=== PATIENT | male | born 1970 | race Two or more races ===

== ENCOUNTER 2019-02-25 22:49 | Inpatient (IN) | payer SELFPAY ==
[~2019-02-25] VITALS: Ht 177.8 cm; Wt 98.1 kg
[2019-02-25] MEDS ORDERED: fentaNYL PF VIAL 100 MCG/2 ML VIAL IV PRN (23:15)
[2019-02-25] MEDS ORDERED: IBUPROFEN 200 MG TABLET. PO ONE (23:30)
[2019-02-25] MEDS ORDERED: ACETAMINOPHEN 500 MG TABLET PO ONE (23:30)
[2019-02-25] MEDS ORDERED: PIPERACILLIN/TAZOBACTAM 4.5 GM in IV NORMAL SALINE 100ML 100 ML IV ONE (23:30)
[2019-02-25] MEDS: IV NORMAL SALINE 1000ML BAG 1,000 ML IV SCH (23:38)
[2019-02-25 23:45] LABS: BASO % 0 % (0-3); EOS % 1 % (0-3); HEMATOCRIT 37.2 % (39.0-53.0); HEMOGLOBIN 12.9 g/dL (13.0-17.5); LYMPH # 0.3 x10^3/uL (1.0-4.8); LYMPH % 6 % (24-48); MEAN CORPUSCULAR HEMOGLOBIN 31 pg (25-35); MEAN CORPUSCULAR HGB CONC 35 g/dL (31-37); MEAN CORPUSCULAR VOLUME 88 fL (79-100); MONO # 0.5 x10^3/uL (0.0-1.1); MONO % 9 % (0-9); NEUT # 4.7 x10^3/uL (1.8-7.7); NEUT % 84 % (31-73); PLATELET COUNT 113 x10^3/uL (140-400); RED BLOOD COUNT 4.22 x10^6/uL (4.30-5.70); RED CELL DISTRIBUTION WIDTH 13.9 % (11.5-14.5); WHITE BLOOD COUNT 5.5 x10^3/uL (4.0-11.0)
[2019-02-26 00:01] LABS: CREATININE 1.2 mg/dL (0.7-1.3); GFR 64.6; POTASSIUM 3.1 mmol/L (3.5-5.1)
[2019-02-26 00:02] LABS: INFLUENZA A PATIENT NEGATIVE (NEGATIVE); INFLUENZA B PATIENT NEGATIVE (NEGATIVE)
[2019-02-26 00:08] LABS: ALBUMIN 2.9 g/dL (3.4-5.0); ALBUMIN/GLOBULIN RATIO 0.7 (1.0-1.7); MAGNESIUM 1.8 mg/dL (1.8-2.4); TOTAL BILIRUBIN 3.1 mg/dL (0.2-1.0); TOTAL PROTEIN 7.2 g/dL (6.4-8.2)
[2019-02-26 00:16] LABS: CREATINE KINASE 64 U/L (39-308)
--- NOTE | 2019-02-26 00:32 | RAD ---
EXAM: CHEST ONE VIEW. HISTORY: Fever, weakness. COMPARISON: None. FINDINGS: A frontal view of the chest is obtained. Interstitial opacities in the bases most likely indicate atelectasis. There is no pneumothorax or pleural effusion. The heart is not enlarged. IMPRESSION: 1. Basilar atelectasis. No confluent infiltrates. Electronically signed by: Danish Katz MD (02/26/2019 12:29 AM) [facility]
[2019-02-26 01:21] LABS: % BANDS 22 % (0-9); % BASOS 1 % (0-3); % EOS 2 % (0-5); % LYMPHS 8 % (24-48); % MONOS 5 % (0-10); % SEGS 62 % (35-66); PLT ESTIMATE DECREASED (ADEQUATE)
[2019-02-26] MEDS: IV NORMAL SALINE 1000ML BAG 1,000 ML IV SCH ×2 (01:30→01:35)
--- NOTE | 2019-02-26 01:48 | PHYS DOC ---
Adult General Chief Complaint Chief Complaint: GENERALIZED BODY ACHES HPI HPI Patient is a 48 year old Tristanian-speaking male who presents to the ED today complaining of fevers, body aches, cough, symptoms began 3 days ago. Patient states he was seen at a different facility earlier today, was given some IV medications and told to return to the hospital if symptoms worsen. He states his symptoms are worse. He is Tristanian-speaking and family is interpreting. Denies any abdominal pain. Denies any chest pain or shortness of breath. Review of Systems Review of Systems Constitutional: Reports fever, reports body aches Eyes: Denies change in visual acuity, redness, or eye pain [] HENT: Denies nasal congestion or sore throat [] Respiratory: Reports cough, denies shortness of breath [] Cardiovascular: No additional information not addressed in HPI [] GI: Denies abdominal pain, nausea, vomiting, bloody stools or diarrhea [] : Denies dysuria or hematuria [] Musculoskeletal: Denies back pain or joint pain [] Integument: Denies rash or skin lesions [] Neurologic: Denies headache, focal weakness or sensory changes [] All other systems were reviewed and found to be within normal limits, except as documented in this note. Current Medications Current Medications Current Medications Medications (Trade) Dose Ordered Sig/Bobby Start Time Stop Time Status Last Admin Dose Admin Acetaminophen (Tylenol) 650 mg PRN Q4HRS PRN 02/26/19 02:00 02/27/19 01:59 Fentanyl Citrate (Fentanyl 2ml Vial) 25 mcg PRN Q15MIN PRN 02/25/19 23:15 02/26/19 23:14 02/25/19 23:37 25 MCG Ibuprofen (Motrin) 600 mg 1X ONCE 02/25/19 23:30 02/25/19 23:31 DC 02/25/19 23:38 600 MG Morphine Sulfate (Morphine Sulfate) 4 mg PRN Q2HR PRN 02/26/19 02:00 02/27/19 01:59 Ondansetron HCl (Zofran) 4 mg PRN Q8HRS PRN 02/26/19 02:00 02/27/19 01:59 Piperacillin Sod/ Tazobactam Sod 4.5 gm/Sodium Chloride 100 ml @ 200 mls/hr 1X ONCE 02/25/19 23:30 02/25/19 23:59 DC 02/25/19 23:39 200 MLS/HR Sodium Chloride 1,000 ml @ 125 mls/hr 1X ONCE 02/26/19 02:30 02/26/19 10:29 Vancomycin HCl (Vanco Per Pharmacy) 1 each PRN DAILY PRN 02/26/19 02:00 Vancomycin HCl 2 gm/Sodium Chloride 500 ml @ 250 mls/hr 1X ONCE 02/26/19 02:30 02/26/19 04:29 Allergies Allergies Allergies Coded Allergies Type Severity Reaction Last Updated Verified No Known Drug Allergies 02/25/19 No Physical Exam Physical Exam Constitutional: Well developed, well nourished, no acute distress, non-toxic appearance. [] HENT: Normocephalic, atraumatic, bilateral external ears normal, oropharynx moist, no oral exudates, nose normal. [] Eyes: PERRLA, EOMI, conjunctiva normal, no discharge. [] Neck: Normal range of motion, no tenderness, supple, no stridor. [] Cardiovascular:Heart rate regular rhythm, no murmur [] Lungs & Thorax: Bilateral breath sounds clear to auscultation [] Abdomen: Bowel sounds normal, soft, no tenderness, no masses, no pulsatile masses. [] Skin: Warm, dry, no erythema, no rash. [] Back: No tenderness, no CVA tenderness. [] Extremities: No tenderness, no cyanosis, no clubbing, ROM intact, no edema. [] Neurologic: Alert and oriented X 3, normal motor function, normal sensory function, no focal deficits noted. [] Psychologic: Affect normal, judgement normal, mood normal. [] Current Patient Data Vital Signs Vital Signs Date Time Temp Pulse Resp B/P (MAP) Pulse Ox O2 Delivery O2 Flow Rate FiO2 02/25/19 23:37 28 96 Room Air Lab Values Laboratory Tests Test 02/25/19 23:35 White Blood Count 5.5 x10^3/uL (4.0-11.0) Red Blood Count 4.22 x10^6/uL (4.30-5.70) L Hemoglobin 12.9 g/dL (13.0-17.5) L Hematocrit 37.2 % (39.0-53.0) L Mean Corpuscular Volume 88 fL (79-100) Mean Corpuscular Hemoglobin 31 pg (25-35) Mean Corpuscular Hemoglobin Concent 35 g/dL (31-37) Red Cell Distribution Width 13.9 % (11.5-14.5) Platelet Count 113 x10^3/uL (140-400) L Neutrophils (%) (Auto) 84 % (31-73) H Lymphocytes (%) (Auto) 6 % (24-48) L Monocytes (%) (Auto) 9 % (0-9) Eosinophils (%) (Auto) 1 % (0-3) Basophils (%) (Auto) 0 % (0-3) Neutrophils # (Auto) 4.7 x10^3/uL (1.8-7.7) Lymphocytes # (Auto) 0.3 x10^3/uL (1.0-4.8) L Monocytes # (Auto) 0.5 x10^3/uL (0.0-1.1) Eosinophils # (Auto) 0.0 x10^3/uL (0.0-0.7) Basophils # (Auto) 0.0 x10^3/uL (0.0-0.2) Segmented Neutrophils % 62 % (35-66) Band Neutrophils % 22 % (0-9) H Lymphocytes % 8 % (24-48) L Monocytes % 5 % (0-10) Eosinophils % 2 % (0-5) Basophils % 1 % (0-3) Platelet Estimate Decreased (ADEQUATE) Sodium Level 138 mmol/L (136-145) Potassium Level 3.1 mmol/L (3.5-5.1) L Chloride Level 105 mmol/L (98-107) Carbon Dioxide Level 23 mmol/L (21-32) Anion Gap 10 (6-14) Blood Urea Nitrogen 12 mg/dL (8-26) Creatinine 1.2 mg/dL (0.7-1.3) Estimated GFR (Cockcroft-Gault) 64.6 BUN/Creatinine Ratio 10 (6-20) Glucose Level 182 mg/dL (70-99) H Lactic Acid Level 1.1 mmol/L (0.4-2.0) Calcium Level 9.0 mg/dL (8.5-10.1) Magnesium Level 1.8 mg/dL (1.8-2.4) Total Bilirubin 3.1 mg/dL (0.2-1.0) H Aspartate Amino Transferase (AST) 58 U/L (15-37) H Alanine Aminotransferase (ALT) 80 U/L (16-63) H Alkaline Phosphatase 120 U/L (46-116) H Creatine Kinase 64 U/L (39-308) Creatine Kinase MB (Mass) 0.9 ng/mL (0.0-3.6) Creatine Kinase MB Relative Index % (0-4) Troponin I Quantitative < 0.017 ng/mL (0.000-0.055) EQ-Cpu-Y-Type Natriuretic Peptide 501 pg/mL (0-124) H Total Protein 7.2 g/dL (6.4-8.2) Albumin 2.9 g/dL (3.4-5.0) L Albumin/Globulin Ratio 0.7 (1.0-1.7) L Procalcitonin 3.84 ng/mL (0.00-0.10) H Influenza Type A Antigen Negative (NEGATIVE) Influenza Type B Antigen Negative (NEGATIVE) Laboratory Tests 02/25/19 23:35 Laboratory Tests 02/25/19 23:35 EKG EKG [] Radiology/Procedures Radiology/Procedures []PROCEDURE: PORTABLE CHEST 1V EXAM: CHEST ONE VIEW. HISTORY: Fever, weakness. COMPARISON: None. FINDINGS: A frontal view of the chest is obtained. Interstitial opacities in the bases most likely indicate atelectasis. There is no pneumothorax or pleural effusion. The heart is not enlarged. IMPRESSION: 1. Basilar atelectasis. No confluent infiltrates. Electronically signed by: Danish Katz MD (02/26/2019 12:29 AM) [facility] DICTATED and SIGNED BY: JAYSON KATZ MD DATE: 02/26/19 0029 Course & Med Decision Making Course & Med Decision Making Pertinent Labs and Imaging studies reviewed. (See chart for details) This is a Tristanian-speaking 48-year-old male patient presenting to the ED today with fever body aches chills, symptoms began 3 days ago. Was seen earlier at a different facility and head some IV medications. Vitals on arrival to the ED temperature 101.3, heart rate 1:30, respiration 32 on room air, blood pressure 119/72, O2 sats 97%. Patient was started on sepsis protocol including IV fluids as well as Zosyn. CBC with a normal WBC but patient has a notable bandemia. CMP noted for potassium of 3.1-patient was given oral potassium replacement. Bilirubin was 3.1, AST 58, AST 80, ALT 120, right upper quadrant abdominal ultrasound is nega tive. Lactic is normal, pro-calcitonin is 3.84. Chest x-ray is negative for pneumonia. Negative influenza A and B. Negative rapid strep. Patient admits the sepsis protocol-I do not have a source for his infection. Patient was admitted in stable condition, IV fluid as well as vancomycin were ordered. Spoke with Dr. Gallagher will give report to Dr. Layla Blue Disclaimer Mirza Disclaimer This electronic medical record was generated, in whole or in part, using a voice recognition dictation system. Date and Time of Reassessment Date: Feb 26, 2019 Time: 02:00 Fluid Challenge Is the fluid challenge complet: No IBW Target Volume Used: No BMI > 30: No Vital Signs Vital Signs: Vital Signs Date Time Temp Pulse Resp B/P (MAP) Pulse Ox O2 Delivery O2 Flow Rate FiO2 02/25/19 23:37 28 96 Room Air Temperature Source: Oral Respirations Respiratory Effort: Normal Respiratory Pattern: Normal Cardiovascular Pulse Rhythm: Regular Heart: Nml rate, reg. rhythm Lung Sounds Breath Sounds: Clear Capillary Refil Capillary Refill: Rt Hand > 3 seconds Peripheral Pulse Pulse Location: Monitor Pulse Strength: Normal (2+) Pulse Assessment Method: Palpation Integumentary Skin: Warm Skin Moisture: Dry Skin Turgor: Normal Skin Color: warm Fingernail Color: WNL Departure Departure Impression: Primary Impression: Fever Additional Impressions: Sepsis Cough Hypokalemia Disposition: ADMITTED INPATIENT Condition: STABLE Referrals: NO PCP (PCP) Problem Qualifiers Primary Impression: Fever Fever type: unspecified Qualified Codes: R50.9 - Fever, unspecified Additional Impressions: Sepsis Sepsis type: sepsis due to unspecified organism Sepsis acute organ dysfunction status: unspecified Qualified Codes: A41.9 - Sepsis, unspecified organism CHERYL FRAZIER SHELL MACHINE OPERATOR Feb 26, 2019 01:48
[2019-02-26] MEDS ORDERED: ACETAMINOPHEN 325 MG TABLET. PO PRN (02:00)
--- NOTE | 2019-02-26 02:17 | RAD ---
EXAM: RIGHT UPPER QUADRANT ULTRASOUND. HISTORY: Elevated liver enzymes. COMPARISON: None. FINDINGS: Sonographic evaluation of the right upper quadrant was performed. Hyperechogenicity of the hepatic parenchyma is consistent with diffuse hepatic steatosis. The liver is mildly enlarged spanning 18.4 cm. There are no focal lesions. The gallbladder is unremarkable without evidence of stones, wall thickening or pericholecystic fluid. There is no sonographic Pinedo sign. The common duct measures 4 mm. The visualized portions of the head of the pancreas reveal no abnormality. The right kidney measures 12.5 cm. Cortical thickness and echogenicity are preserved. There is no hydronephrosis. The visualized portions of the abdominal aorta and inferior vena cava are grossly patent and normal in caliber. IMPRESSION: 1. Diffuse hepatic steatosis. Electronically signed by: Danish Katz MD (02/26/2019 2:14 AM) [facility]
[2019-02-26] MEDS ORDERED: POTASSIUM CHLORIDE 20 MEQ TABLET.ER. PO ONE (02:30)
[2019-02-26] MEDS ORDERED: VANCOMYCIN 2 GM in IV NORMAL SALINE 500ML BAG 500 ML IV ONE (02:30)
[2019-02-26] MEDS ORDERED: IV NORMAL SALINE 1000ML BAG 1,000 ML IV ONE (02:30)
[2019-02-26] MEDS ORDERED: CONTRAST GIVEN. MC PRN (02:45)
[2019-02-26] MEDS ORDERED: IOHEXOL 300 MG/ML 100ML VIAL. IV ONE (02:45)
[2019-02-26 03:00] LABS: BILIRUBIN,URINE NEGATIVE (NEG); CLARITY,URINE CLEAR; COLOR,URINE YELLOW; NITRITE,URINE NEGATIVE (NEG); PROTEIN,URINE 30 mg/dL (NEG-TRACE)
[2019-02-26 03:09] LABS: BACTERIA,URINE 0 /HPF (0-FEW)
[2019-02-26 03:10] LABS: SQUAMOUS EPITHELIAL CELL,UR OCC /LPF
--- NOTE | 2019-02-26 03:17 | RAD ---
EXAM: CT ABDOMEN/PELVIS WITH CONTRAST. HISTORY: Fever, abdominal pain. TECHNIQUE: Computed tomography of the abdomen and pelvis was performed after the intravenous administration of Isovue-370. COMPARISON: None. FINDINGS: Lung windows through the visualized portions of the bases reveal interstitial opacities in both lung bases. Bone windows reveal no suspicious lesions. There is mild urothelial thickening along both upper tracts. There is no hydronephrosis. Both kidneys enhance symmetrically. The bladder is unremarkable. The liver, gallbladder, pancreas, adrenal glands and spleen are unremarkable. There are no pathologically enlarged lymph nodes. The appendix is not inflamed. There is no small bowel obstruction. IMPRESSION: 1. Urothelial thickening along both upper tracts. Correlate for ascending urinary tract infection. No hydronephrosis. 2. Interstitial opacities in both lung bases. Correlate for mild to moderate pulmonary edema or atypical pneumonia. *One or more of the following individualized dose reduction techniques were utilized for this examination: 1. Automated exposure control. 2. Adjustment of the mA and/or kV according to patient size. 3. Use of iterative reconstruction technique. Electronically signed by: Danish Katz MD (02/26/2019 3:14 AM) [facility]
[2019-02-26 03:20] VITALS: BP 103/70
[2019-02-26] MEDS: VANCOMYCIN PER PHARMACY MC PRN ×2 (04:14→11:27)
--- NOTE | 2019-02-26 04:16 | NUR ---
Pharmacy Vancomycin Dosing Note S:Consulted to monitor and dose vancomycin started 02/26/19. O:SAKSHI SIMS is a 48 year old M with Sepsis . Height: 6 feet, 0 inches Weight: 97.600441 kg [place] Body Weight: 77.60 Adjusted Body Weight: 85.56 Dosing Weight: Actual Other Antibiotics: ZOSYN X1 IN ER LABS: Last BUN: 12 Last Creatinine: 1.2 Creatinine Clearance: 91 mL/min Last WBC: 5.5 Last Procalcitonin: 3.84 Tmax (past 24 hours): 101.3 Microbiology: I/O: Drug Levels: Last level: on at Last dose given 02/26/19 at 0230 Vancomycin Dosing: Loading Dose: 2000 mg x1 Dosing Weight: Actual Target Trough: 15-20 A: Based on: WT AND CRCL P: 1. Begin Vancomycin 1500 mg IV q12h 2. Follow up Trough level on 02/27/19 at 1430 3. Pharmacy will continue to monitor, follow and adjust therapy as needed. TARA NEGRON RPH, 02/26/19 0416 Signed: 02/26/19 at 0416 by TARA NEGRON RPH PHA
--- NOTE | 2019-02-26 05:38 | EKG ---
[facility] [address] [place] [address] Test Date: 2019-02-25 Test Time: 23:16:32 Pat Name: SAKSHI SIMS Department: Room: [facility] Gender: M Banquet Stewardess: : 1970 Requested By: CHERYL FRAZIER Order Number: [id number] Reading MD: Sudheer Norwood MD Measurements Intervals [place] Rate: 121 P: 8 ND: 150 QRS: 37 QRSD: 88 T: -48 QT: 286 QTc: 409 Interpretive Statements SINUS TACHYCARDIA NON-SPECIFIC ST/T CHANGES Electronically Signed On 03-06-2019 9:56:56 CDT by Sudheer Norwood MD
[2019-02-26 07:00] VITALS: BP 91/57
[2019-02-26] MEDS: ONDANSETRON PF 4 MG/2 ML VIAL. IV PRN ×2 (08:40→19:45)
[2019-02-26] MEDS: MORPHINE SULFATE 4 MG/ML VIAL. IV PRN ×4 (08:45→19:45)
[2019-02-26] MEDS ORDERED: FLU VAX QS 2019-20 (36MOS+)/PF 0.5 ML SYRINGE. VAX IM ONE (09:00)
--- NOTE | 2019-02-26 09:41 | PDOC ---
[employer] PROGRESS NOTE Chief Complaint Chief Complaint Fever Cough Sepsis Hypokalemia History of Present Illness History of Present Illness 02/26/19 Pt seen and examined at bedside Joined by family; does not speak Belarusian Son was able to interpret Pt was laying in bed, looked slightly uncomfortable Charts and labs reviewed Interstitial opacities found on CXR Possible ascending pyelonephritis Hepatitic steatosis on US Vitals/I&O Vitals/I&O: Vital Signs Date Time Temp Pulse Resp B/P (MAP) Pulse Ox O2 Delivery O2 Flow Rate FiO2 02/26/19 08:45 Room Air 02/26/19 07:00 99.4 78 18 91/57 (68) 95 99.4 I & O 02/25/19 02/25/19 02/26/19 15:00 23:00 07:00 Intake Total 2547 ml Balance 2547 ml Physical Exam General: Alert, Oriented X3, Cooperative, No acute distress Heart: Regular rate, Normal S1, Normal S2 Abdomen: Normal bowel sounds, Soft Extremities: No clubbing, No cyanosis Skin: No rashes, No breakdown, No significant lesion Labs Labs: Laboratory Tests Test 02/25/19 23:35 02/25/19 23:45 02/26/19 02:52 White Blood Count 5.5 x10^3/uL (4.0-11.0) Red Blood Count 4.22 x10^6/uL (4.30-5.70) Hemoglobin 12.9 g/dL (13.0-17.5) Hematocrit 37.2 % (39.0-53.0) Mean Corpuscular Volume 88 fL (79-100) Mean Corpuscular Hemoglobin 31 pg (25-35) Mean Corpuscular Hemoglobin Concent 35 g/dL (31-37) Red Cell Distribution Width 13.9 % (11.5-14.5) Platelet Count 113 x10^3/uL (140-400) Neutrophils (%) (Auto) 84 % (31-73) Lymphocytes (%) (Auto) 6 % (24-48) Monocytes (%) (Auto) 9 % (0-9) Eosinophils (%) (Auto) 1 % (0-3) Basophils (%) (Auto) 0 % (0-3) Neutrophils # (Auto) 4.7 x10^3/uL (1.8-7.7) Lymphocytes # (Auto) 0.3 x10^3/uL (1.0-4.8) Monocytes # (Auto) 0.5 x10^3/uL (0.0-1.1) Eosinophils # (Auto) 0.0 x10^3/uL (0.0-0.7) Basophils # (Auto) 0.0 x10^3/uL (0.0-0.2) Segmented Neutrophils % 62 % (35-66) Band Neutrophils % 22 % (0-9) Lymphocytes % 8 % (24-48) Monocytes % 5 % (0-10) Eosinophils % 2 % (0-5) Basophils % 1 % (0-3) Platelet Estimate Decreased (ADEQUATE) Sodium Level 138 mmol/L (136-145) Potassium Level 3.1 mmol/L (3.5-5.1) Chloride Level 105 mmol/L (98-107) Carbon Dioxide Level 23 mmol/L (21-32) Anion Gap 10 (6-14) Blood Urea Nitrogen 12 mg/dL (8-26) Creatinine 1.2 mg/dL (0.7-1.3) Estimated GFR (Cockcroft-Gault) 64.6 BUN/Creatinine Ratio 10 (6-20) Glucose Level 182 mg/dL (70-99) Lactic Acid Level 1.1 mmol/L (0.4-2.0) Calcium Level 9.0 mg/dL (8.5-10.1) Magnesium Level 1.8 mg/dL (1.8-2.4) Total Bilirubin 3.1 mg/dL (0.2-1.0) Aspartate Amino Transf (AST/SGOT) 58 U/L (15-37) Alanine Aminotransferase (ALT/SGPT) 80 U/L (16-63) Alkaline Phosphatase 120 U/L (46-116) Creatine Kinase 64 U/L (39-308) Creatine Kinase MB (Mass) 0.9 ng/mL (0.0-3.6) Creatine Kinase MB Relative Index % (0-4) Troponin I Quantitative < 0.017 ng/mL (0.000-0.055) EX-Emk-O-Type Natriuretic Peptide 501 pg/mL (0-124) Total Protein 7.2 g/dL (6.4-8.2) Albumin 2.9 g/dL (3.4-5.0) Albumin/Globulin Ratio 0.7 (1.0-1.7) Procalcitonin 3.84 ng/mL (0.00-0.10) Influenza Type A Antigen Negative (NEGATIVE) Influenza Type B Antigen Negative (NEGATIVE) Group A Streptococcus Rapid Negative (NEGATIVE) Urine Collection Type Unknown Urine Color Yellow Urine Clarity Clear Urine pH 6.0 Urine Specific [place] 1.010 Urine Protein 30 mg/dL (NEG-TRACE) Urine Glucose (UA) Negative mg/dL (NEG) Urine Ketones (Stick) Negative mg/dL (NEG) Urine Blood Moderate (NEG) Urine Nitrite Negative (NEG) Urine Bilirubin Negative (NEG) Urine Urobilinogen Dipstick 1.0 mg/dL (0.2 mg/dL) Urine Leukocyte Esterase Negative (NEG) Urine RBC 11-20 /HPF (0-2) Urine WBC 1-4 /HPF (0-4) Urine Squamous Epithelial Cells Occ /LPF Urine Bacteria 0 /HPF (0-FEW) Urine Mucus Slight /LPF Review of Systems Review of Systems: No nausea, no vomiting No chest pain, no palpitations Assessment and Plan Assessmemt and Plan Problems Medical Problems: (1) Cough Status: Acute (2) Fever Status: Acute (3) Hypokalemia Status: Acute (4) Sepsis Status: Acute Assessment Sepsis Cough Hypokalemia Pneumonia Plan IV abx Breathing treatments Rocephin 1 gm IV q24 Home meds Full code Possible discharge tomorrow Comment Review of Relevant I have reviewed the following items lacey (where applicable) has been applied. Medications: Current Medications Medications (Trade) Dose Ordered Sig/Bobby Route PRN Reason Start Time Stop Time Status Last Admin Dose Admin Sodium Chloride 1,000 ml @ 1,000 mls/hr Q1H IV 02/25/19 23:30 02/26/19 01:49 DC 02/26/19 01:30 Piperacillin Sod/ Tazobactam Sod 4.5 gm/Sodium Chloride 100 ml @ 200 mls/hr 1X ONCE IV 02/25/19 23:30 02/25/19 23:59 DC 02/25/19 23:39 Acetaminophen (Tylenol) 1,000 mg 1X ONCE PO 02/25/19 23:30 02/25/19 23:31 DC 02/25/19 23:38 Ibuprofen (Motrin) 600 mg 1X ONCE PO 02/25/19 23:30 02/25/19 23:31 DC 02/25/19 23:38 Fentanyl Citrate (Fentanyl 2ml Vial) 25 mcg PRN Q15MIN PRN IV PAIN GREATER THAN 3/10 02/25/19 23:15 02/26/19 23:14 02/25/19 23:37 Ondansetron HCl (Zofran) 4 mg PRN Q8HRS PRN IV NAUSEA/VOMITING 1st choice 02/26/19 02:00 02/27/19 01:59 02/26/19 08:40 Morphine Sulfate (Morphine Sulfate) 4 mg PRN Q2HR PRN IV SEVERE PAIN 7-10 02/26/19 02:00 02/27/19 01:59 02/26/19 08:45 Sodium Chloride 1,000 ml @ 125 mls/hr 1X ONCE IV 02/26/19 02:30 02/26/19 10:29 02/26/19 02:30 Vancomycin HCl (Vanco Per Pharmacy) 1 each PRN DAILY PRN MC SEE COMMENTS 02/26/19 02:00 02/26/19 04:14 Vancomycin HCl 2 gm/Sodium Chloride 500 ml @ 250 mls/hr 1X ONCE IV 02/26/19 02:30 02/26/19 04:29 DC 02/26/19 02:18 Potassium Chloride (Klor-Con) 40 meq 1X ONCE PO 02/26/19 02:30 02/26/19 02:31 DC 02/26/19 02:21 Iohexol (Omnipaque 300 Mg/ml) 75 ml 1X ONCE IV 02/26/19 02:45 02/26/19 02:46 DC 02/26/19 02:37 LM CORREIA III DO Feb 26, 2019 09:41
[2019-02-26 11:00] VITALS: BP 94/64
--- NOTE | 2019-02-26 11:26 | NUR ---
SS followed for discharge planning. SS reviewed pt chart. Pt is a self pay pt. HCF[facility] following for self pay status. Pt is from home with spouse and is currently on room air. SS will continue to follow for discharge planning.
[2019-02-26] MEDS ORDERED: PROCHLORPERAZINE 10 MG/2 ML VIAL. IM PRN (11:45)
--- NOTE | 2019-02-26 11:46 | HP ---
ADMIT DATE: 02/26/2019 CHIEF COMPLAINT: Shortness of breath and cough. HISTORY OF PRESENT ILLNESS: The patient is a pleasant middle-aged male, who presented with cough and shortness of breath. Chest x-ray is confirming pneumonia. He rates it as 7/10. He has associated weakness. He tried taking some hinj-bgs-cnccyis meds, but that was not working. I discussed the case with the ER physician. We are going to admit the patient and give him IV antibiotics and breathing treatments. PAST MEDICAL HISTORY: Benign. ALLERGIES: None. FAMILY HISTORY: Hypertension. SOCIAL HISTORY: Does not drink, smoke or take drugs. He does construction. MEDICATIONS: Reviewed, please refer to the MRAD. REVIEW OF SYSTEMS: GENERAL: No history of weight change, weakness or fevers. SKIN: No bruising, hair changes or rashes. EYES: No blurred, double or loss of vision. NOSE AND THROAT: No history of nosebleeds, hoarseness or sore throat. HEART: No history of palpitations, chest pain or shortness of breath on exertion. LUNGS: The patient complains of shortness of breath and cough. GASTROINTESTINAL: Denies changes in appetite, nausea, vomiting, diarrhea or constipation. GENITOURINARY: No history of frequency, urgency, hesitancy or nocturia. NEUROLOGIC: Denies history of numbness, tingling, tremor or weakness. PSYCHIATRIC: No history of panic, anxiety or depression. ENDOCRINE: No history of heat or cold intolerance, polyuria or polydipsia. EXTREMITIES: Denies muscle weakness, joint pain, pain on walking or stiffness. PHYSICAL EXAMINATION: VITALS: Within normal limits and are stable. GENERAL: No apparent distress. Alert and oriented. HEENT: Head is normocephalic, atraumatic, pupils were equally round and reactive to light and accommodation. NECK: Supple, no JVD, no thyromegaly was noted. LUNGS: Clear to auscultation in all lung hart without rhonchi or wheezing. HEART: RRR, S1, S2 present. Peripheral pulses intact, no obvious murmurs were noted. ABDOMEN: Soft, nontender. Positive bowel sounds no organomegaly, normal bowel sounds. EXTREMITIES: Without any cyanosis, clubbing, or edema. Pedal pulses intact, Homans sign is negative. NEUROLOGIC: Normal speech, normal tone. A and O x 3, moves all extremities, no obvious focal deficits. PSYCHIATRIC: Normal affect, normal mood. Stable. SKIN: No ulcerations or rashes, good skin turgor, no jaundice. VASCULAR: Good capillary refill, neurovascular bundle appears to be intact. LABORATORY DATA: Urinalysis showed negative leukocyte esterase and 1 white cell. White count was 5, hemoglobin 12.9 and platelets 113. Electrolytes are normal other than potassium of 3.1. Procalcitonin 3.84. Influenza testing was negative. DIAGNOSTIC DATA: CT of the abdomen shows some thickening of both upper urinary tracts. There are also interstitial opacities of both lung bases. ASSESSMENT AND PLAN: Clinical pneumonia and abnormal CAT scan showing some possible infection of the upper urinary tracts. We are going to start IV antibiotics. Consult Pulmonary, consult Urology. IV fluids, p.r.n. Zofran, home meds and DVT prophylaxis. LM CORREIA DO DR: REAGAN/pema JOB#: [id number] / [id number]
--- NOTE | 2019-02-26 12:01 | CONS ---
DATE OF CONSULTATION: PULMONARY CONSULTATION ATTENDING PHYSICIAN: Gracie Garza DO REASON FOR CONSULTATION: Abnormal CT abdomen. HISTORY OF PRESENT ILLNESS: The patient is a 48-year-old male who came into the hospital with complaint of abdominal pain. The patient's abdominal pain is mid epigastric and radiating to the lower quadrants. He had a mild cough last night, but it is resolved now. No purulent sputum production. The patient has been having low-grade fever. He underwent a CT of the abdomen and pelvis, which was reviewed by me. The lower section of the lung shows likely atelectasis. He has also had urothelial thickening along both upper tracts. He does not smoke cigarettes. He does not have any shortness of breath. Currently, he is on antibiotic, Rocephin and vancomycin. Neurology has been consulted. PAST MEDICAL HISTORY: Essentially unremarkable. PAST SURGICAL HISTORY: None. ALLERGIES: None. MEDICATIONS: Reviewed as listed in the MRAD. REVIEW OF SYSTEMS: As discussed in my history of present illness. SOCIAL HISTORY: Nonsmoker. PHYSICAL EXAMINATION: VITAL SIGNS: Blood pressure stable, pulse ox 98% on room air. T-max of 99.5. HEENT: Sclerae nonicteric. NECK: Supple. LUNGS: Clear. CARDIOVASCULAR: With a regular rate. ABDOMEN: Tender in the mid epigastric and lower quadrant area. EXTREMITIES: With no pitting edema. LABORATORY DATA: Reviewed. White cell count 5.5, hemoglobin 12.9, platelets are 113. BUN 12, creatinine 1.2. IMPRESSION: 1. Abnormal CT abdomen with some accentuated markings at the bases, likely secondary to basal atelectasis from the abdominal process. 2. No clinical symptoms suggesting pneumonia. 3. Increasing epigastric and lower quadrant abdominal pain with low-grade fever and abnormal CT abdomen and pelvis suggesting urothelial thickening along both upper tracts. Suspect urinary tract infection with ascending infection. Urology has been consulted. 4. No significant tobacco history. RECOMMENDATIONS: 1. Discussed with RN. No intervention from a pulmonary standpoint. 2. Pain control. 3. Follow Urology recommendations. 4. High procalcitonin related to infectious process below the diaphragm. 5. No suspicion for atypical pneumonia. We will be available for any further recommendations. ALONSO FLORENTINO MD DR: THIERNO/pema JOB#: [id number] / [id number]
[2019-02-26] MEDS: cefTRIAXone IV Push 1 GM VIAL. IVP SCH (12:37)
[2019-02-26] MEDS: PROCHLORPERAZINE 10 MG/2 ML VIAL. IV PRN (13:02)
[2019-02-26 15:00] VITALS: BP 93/54
[2019-02-26] MEDS: VANCOMYCIN 1.5 GM in IV NORMAL SALINE 500ML BAG 500 ML IV SCH (15:31)
[2019-02-26 19:00] VITALS: BP 107/64
[2019-02-26 22:50] VITALS: BP 117/72
[2019-02-27 03:00] VITALS: BP 98/58
[2019-02-27] MEDS: VANCOMYCIN 1.5 GM in IV NORMAL SALINE 500ML BAG 500 ML IV SCH ×2 (03:48→15:38)
[2019-02-27 04:07] LABS: CALCIUM 8.4 mg/dL (8.5-10.1); CREATININE 1.2 mg/dL (0.7-1.3); GFR 64.6; POTASSIUM 3.6 mmol/L (3.5-5.1)
[2019-02-27] MEDS: ACETAMINOPHEN 325 MG TABLET. PO PRN ×3 (04:10→15:42)
[2019-02-27] MEDS: IV NORMAL SALINE 1000ML BAG 1,000 ML IV SCH ×2 (04:10→17:50)
[2019-02-27] MEDS ORDERED: MORPHINE SULFATE 4 MG/ML VIAL. IV PRN (04:15)
[2019-02-27 07:00] VITALS: BP 105/64
--- NOTE | 2019-02-27 08:39 | PDOC2 ---
KRISTEN CENTENO 02/27/19 0839: UROLOGY CONSULT Date of Consult Date of Consult DATE: 02/27/19 TIME: 08:31 Identification/Chief Complaint Chief Complaint abnormal CT findings Source Source: Caregiver, Chart review, Patient History of Present Illness Reason for Visit: 48yo male with no significant PMH presented to ER for cough and shortness of breath. He was admitted for IV antibiotics and breathing treatments. CT a/p with contrast showed bilateral urothelial thickening of upper tracts suggestive of ascending infection. The patient denies any urinary bother: hematuria, dysuria, frequency, urgency. He denies abdominal pain, back pain, fevers, nausea, vomiting. He states he feels much better today than yesterday. Pt does not smoke. Family acted as dress marker. Past Medical History Past Medical History No pertinent history Past Surgical History Past Surgical History: No pertinent history Family History Family History: Hypertension Social History No ALCOHOL: none Drugs: None Current Medications Current Medications Current Medications Acetaminophen (Tylenol) 650 mg PRN Q6HRS PRN PO headache Last administered on 02/27/19at 04:10; Start 02/27/19 at 04:15 Ceftriaxone Sodium (Rocephin) 1 gm Q24H IVP Last administered on 02/26/19at 12:37; Start 02/26/19 at 11:30 Influenza Virus Vaccine Quadrival (Afluria Quad 2019-20 (3yr Up) Syringe) 0.5 ml ONCE ONCE VAX IM ; Start 02/26/19 at 09:00; Stop 02/26/19 at 09:01; Status DC Morphine Sulfate (Morphine Sulfate) 4 mg PRN Q2HRS PRN IV SEVERE PAIN 7-10; Start 02/27/19 at 04:15 Prochlorperazine Edisylate (Compazine) 10 mg PRN Q6HRS PRN IM NAUSEA/VOMITING; Start 02/26/19 at 11:45; Stop 02/26/19 at 12:45; Status DC Prochlorperazine Edisylate (Compazine) 10 mg PRN Q6HRS PRN IV NAUSEA/VOMITING Last administered on 02/26/19at 13:02; Start 02/26/19 at 12:45 Sodium Chloride 1,000 ml @ 75 mls/hr [id number] IV Last administered on 02/27/19at 04:10; Start 02/27/19 at 04:30 Vancomycin HCl (Vancomycin Trough Level) 1 each 1X ONCE MC ; Start 02/27/19 at 14:30; Stop 02/27/19 at 14:31 Vancomycin HCl 1.5 gm/Sodium Chloride 500 ml @ 250 mls/hr Q12H IV Last administered on 02/27/19at 03:48; Start 02/26/19 at 15:00 Allergies Allergies: Coded Allergies: No Known Drug Allergies (Unverified , 02/25/19) ROS Review Of Systems: CONSTITUTIONAL: No fever or chills EYES: No recent changes SKIN: No rash or itching CARDIOVASCULAR: No chest pain, syncope, palpitations, or edema RESPIRATORY: No SOB or cough GASTROINTESTINAL: No nausea, vomiting or abdominal pain NEUROLOGICAL: No headaches or weakness ENDOCRINE: No cold or heat intolerance GENITOURINARY: As per HPI MUSCULOSKELETAL: No back pain or joint pain LYMPHATICS: No enlarged lymph nodes PSYCHIATRIC: No anxiety or depression Physical Exam Physical Exam: General: Pleasant, no acute distress, well groomed, eating breakfast Eyes: conjunctiva anicteric, eyes full range of motion ENT: moist oral mucosa, normal dentition Neck: Trachea midline, no masses Respiratory: unlabored breathing, not using accessory muscles Cardiovascular: Regular rate and rhythm, no peripheral edema Abdomen: nontender, nondistended, no hepatosplenomegaly, no masses : No CVAT Skin: no rashes or skin lesions on visualized skin Psych: normal mood, affect. Alert and oriented x 3. Vitals VITALS Vital Signs Date Time Temp Pulse Resp B/P (MAP) Pulse Ox O2 Delivery O2 Flow Rate FiO2 02/27/19 07:00 99.0 93 58 105/64 (78) 90 Room Air 99.0 Labs Labs Laboratory Tests Test 02/25/19 23:35 02/25/19 23:45 02/26/19 02:52 02/27/19 03:00 White Blood Count 5.5 x10^3/uL (4.0-11.0) Red Blood Count 4.22 x10^6/uL (4.30-5.70) Hemoglobin 12.9 g/dL (13.0-17.5) Hematocrit 37.2 % (39.0-53.0) Mean Corpuscular Volume 88 fL (79-100) Mean Corpuscular Hemoglobin 31 pg (25-35) Mean Corpuscular Hemoglobin Concent 35 g/dL (31-37) Red Cell Distribution Width 13.9 % (11.5-14.5) Platelet Count 113 x10^3/uL (140-400) Neutrophils (%) (Auto) 84 % (31-73) Lymphocytes (%) (Auto) 6 % (24-48) Monocytes (%) (Auto) 9 % (0-9) Eosinophils (%) (Auto) 1 % (0-3) Basophils (%) (Auto) 0 % (0-3) Neutrophils # (Auto) 4.7 x10^3/uL (1.8-7.7) Lymphocytes # (Auto) 0.3 x10^3/uL (1.0-4.8) Monocytes # (Auto) 0.5 x10^3/uL (0.0-1.1) Eosinophils # (Auto) 0.0 x10^3/uL (0.0-0.7) Basophils # (Auto) 0.0 x10^3/uL (0.0-0.2) Segmented Neutrophils % 62 % (35-66) Band Neutrophils % 22 % (0-9) Lymphocytes % 8 % (24-48) Monocytes % 5 % (0-10) Eosinophils % 2 % (0-5) Basophils % 1 % (0-3) Platelet Estimate Decreased (ADEQUATE) Sodium Level 138 mmol/L (136-145) 146 mmol/L (136-145) Potassium Level 3.1 mmol/L (3.5-5.1) 3.6 mmol/L (3.5-5.1) Chloride Level 105 mmol/L (98-107) 113 mmol/L (98-107) Carbon Dioxide Level 23 mmol/L (21-32) 22 mmol/L (21-32) Anion Gap 10 (6-14) 11 (6-14) Blood Urea Nitrogen 12 mg/dL (8-26) 16 mg/dL (8-26) Creatinine 1.2 mg/dL (0.7-1.3) 1.2 mg/dL (0.7-1.3) Estimated GFR (Cockcroft-Gault) 64.6 64.6 BUN/Creatinine Ratio 10 (6-20) Glucose Level 182 mg/dL (70-99) 118 mg/dL (70-99) Lactic Acid Level 1.1 mmol/L (0.4-2.0) Calcium Level 9.0 mg/dL (8.5-10.1) 8.4 mg/dL (8.5-10.1) Magnesium Level 1.8 mg/dL (1.8-2.4) Total Bilirubin 3.1 mg/dL (0.2-1.0) Aspartate Amino Transf (AST/SGOT) 58 U/L (15-37) Alanine Aminotransferase (ALT/SGPT) 80 U/L (16-63) Alkaline Phosphatase 120 U/L (46-116) Creatine Kinase 64 U/L (39-308) Creatine Kinase MB (Mass) 0.9 ng/mL (0.0-3.6) Creatine Kinase MB Relative Index % (0-4) Troponin I Quantitative < 0.017 ng/mL (0.000-0.055) WC-Wjl-L-Type Natriuretic Peptide 501 pg/mL (0-124) Total Protein 7.2 g/dL (6.4-8.2) Albumin 2.9 g/dL (3.4-5.0) Albumin/Globulin Ratio 0.7 (1.0-1.7) Procalcitonin 3.84 ng/mL (0.00-0.10) Influenza Type A Antigen Negative (NEGATIVE) Influenza Type B Antigen Negative (NEGATIVE) Group A Streptococcus Rapid Negative (NEGATIVE) Urine Collection Type Unknown Urine Color Yellow Urine Clarity Clear Urine pH 6.0 Urine Specific [place] 1.010 Urine Protein 30 mg/dL (NEG-TRACE) Urine Glucose (UA) Negative mg/dL (NEG) Urine Ketones (Stick) Negative mg/dL (NEG) Urine Blood Moderate (NEG) Urine Nitrite Negative (NEG) Urine Bilirubin Negative (NEG) Urine Urobilinogen Dipstick 1.0 mg/dL (0.2 mg/dL) Urine Leukocyte Esterase Negative (NEG) Urine RBC 11-20 /HPF (0-2) Urine WBC 1-4 /HPF (0-4) Urine Squamous Epithelial Cells Occ /LPF Urine Bacteria 0 /HPF (0-FEW) Urine Mucus Slight /LPF Laboratory Tests Test 02/27/19 03:00 Sodium Level 146 mmol/L (136-145) Potassium Level 3.6 mmol/L (3.5-5.1) Chloride Level 113 mmol/L (98-107) Carbon Dioxide Level 22 mmol/L (21-32) Anion Gap 11 (6-14) Blood Urea Nitrogen 16 mg/dL (8-26) Creatinine 1.2 mg/dL (0.7-1.3) Estimated GFR (Cockcroft-Gault) 64.6 Glucose Level 118 mg/dL (70-99) Calcium Level 8.4 mg/dL (8.5-10.1) Images Images CT abdomen/pelvis with IV Contrast Only IMPRESSION: 1. Urothelial thickening along both upper tracts. Correlate for ascending urinary tract infection. No hydronephrosis. 2. Interstitial opacities in both lung bases. Correlate for mild to moderate pulmonary edema or atypical pneumonia. Assessment/Plan Assessment/Plan Bilateral urothelial thickening of upper tracts, microhematuria No signs of acute infection Will order urine cytologies Recommend outpatient followup for CT Urogram to assess for malignancy JOSE HEBERT MD 02/27/19 1052: UROLOGY CONSULT Assessment/Plan Assessment/Plan agree w above. CTU and cysto, u cyto given MH and upper tract abnl findings. KRISTEN CENTENO Feb 27, 2019 08:39 JOSE HEBERT MD Feb 27, 2019 10:52
--- NOTE | 2019-02-27 10:12 | PDOC ---
[facility] PROGRESS NOTE Chief Complaint Chief Complaint Fever Cough Sepsis Hypokalemia History of Present Illness History of Present Illness 02/27/19 Pt seen and examined at bedside Joined by family, son was able to translate Pt laying in bed, was able to answer questions Charts and labs reviewed DW RN Seen by pulmonary and urology Urine cultures negative Urothelial thickening seen on imaging 02/26/19 Pt seen and examined at bedside Joined by family; does not speak Macedonian Son was able to interpret Pt was laying in bed, looked slightly uncomfortable Charts and labs reviewed Interstitial opacities found on CXR Possible ascending pyelonephritis Hepatitic steatosis on US Vitals/I&O Vitals/I&O: Vital Signs Date Time Temp Pulse Resp B/P (MAP) Pulse Ox O2 Delivery O2 Flow Rate FiO2 02/27/19 07:00 99.0 93 58 105/64 (78) 90 Room Air 99.0 Physical Exam General: Alert, Oriented X3, Cooperative, No acute distress Heart: Regular rate, Normal S1, Normal S2 Abdomen: Normal bowel sounds, Soft Extremities: No clubbing, No cyanosis, No tenderness/swelling Skin: No rashes, No breakdown, No significant lesion Labs Labs: Laboratory Tests Test 02/27/19 03:00 Sodium Level 146 mmol/L (136-145) Potassium Level 3.6 mmol/L (3.5-5.1) Chloride Level 113 mmol/L (98-107) Carbon Dioxide Level 22 mmol/L (21-32) Anion Gap 11 (6-14) Blood Urea Nitrogen 16 mg/dL (8-26) Creatinine 1.2 mg/dL (0.7-1.3) Estimated GFR (Cockcroft-Gault) 64.6 Glucose Level 118 mg/dL (70-99) Calcium Level 8.4 mg/dL (8.5-10.1) Review of Systems Review of Systems: No nausea, no vomiting No headache, no changes in vision No dysuria, no polyuria Assessment and Plan Assessmemt and Plan Problems Medical Problems: (1) Cough Status: Acute (2) Fever Status: Acute (3) Hypokalemia Status: Acute (4) Sepsis Status: Acute Assessment Fever Cough Sepsis UTI Pyelonephritis Plan PO abx Outpatient CT urogram to r/o malignancy per urology Possible discharge today Home meds DVT prophylaxis Full code Comment Review of Relevant I have reviewed the following items lacey (where applicable) has been applied. Medications: Current Medications Medications (Trade) Dose Ordered Sig/Bobby Route PRN Reason Start Time Stop Time Status Last Admin Dose Admin Vancomycin HCl 1.5 gm/Sodium Chloride 500 ml @ 250 mls/hr Q12H IV 02/26/19 15:00 02/27/19 03:48 Ceftriaxone Sodium (Rocephin) 1 gm Q24H IVP 02/26/19 11:30 02/26/19 12:37 Prochlorperazine Edisylate (Compazine) 10 mg PRN Q6HRS PRN IV NAUSEA/VOMITING 02/26/19 12:45 02/26/19 13:02 Acetaminophen (Tylenol) 650 mg PRN Q6HRS PRN PO headache 02/27/19 04:15 02/27/19 04:10 Sodium Chloride 1,000 ml @ 75 mls/hr [id number] IV 02/27/19 04:30 02/27/19 04:10 LM CORREIA III DO Feb 27, 2019 10:12
[2019-02-27 11:00] VITALS: BP 108/78
[2019-02-27] MEDS: cefTRIAXone IV Push 1 GM VIAL. IVP SCH (12:38)
[2019-02-27] MEDS: PROCHLORPERAZINE 10 MG/2 ML VIAL. IV PRN (12:38)
--- NOTE | 2019-02-27 13:00 | NUR ---
family reports pt has vomited x4 this shift. pg to Dr. Garza. DC cancelled and GI consulted.
[2019-02-27] MEDS ORDERED: ONDANSETRON PF 4 MG/2 ML VIAL. IVP PRN (14:15)
--- NOTE | 2019-02-27 14:55 | DS ---
DATE OF DISCHARGE: 02/26/2019 ADMISSION DIAGNOSIS: Cough, fever, sepsis and hypokalemia. DISCHARGE DIAGNOSES: Resolving sepsis. HOSPITAL COURSE: The patient is a pleasant 48-year-old male who presented with sepsis picture. I was concerned he could have pneumonia. I was also concerned he could have UTI, but his urine was clean. His chest x-ray reveals clean, but the CAT scan showed abnormal ureteral morphology. The ureters were swollen. There was some concern for ascending infection. Urology feels like he looks good enough to go home, but wants to follow this closely as an outpatient to make sure he does not have some neoplastic process occurring. I spoke with Dr. Bolanos, he feels like the lungs are in good condition. I saw the patient this morning, he looks great. I plan to go ahead and discharge on p.o. antibiotics with a prescription of Augmentin. DISPOSITION: Home. ACTIVITY: As tolerated. DIET: Low sodium. MEDICATIONS: Please see the MRAD. TOTAL TIME: 32 minutes. LM CORREIA DO DR: REAGAN/pema JOB#: [id number] / [id number]
[2019-02-27 15:00] VITALS: BP 103/69
--- NOTE | 2019-02-27 15:05 | PDOC2 ---
GI CONSULT Reason For Consult: Nausea, vomiting HPI: HPI: 48 y/o Setsw[place]-speaking male admitted through ER on 02/25. No information assurance analyst phone in room, family member Carlos translates. Initially felt ill on Monday w/ aches and fever, and then noted some decreased appetite on Monday. Started w/ n/v either Monday or Monday. Tried clear liquids earlier - vomited after. Has epigastric and RUQ pain that is constant - "a little burning" but mostly just pain. No radiation to back or into chest. No reflux/heartburn, dysphagia, chronic n/v, diarrhea, constipation, hematochezi a, melena, or weight loss. Has had similar pain in the past - "he just drinks something" (I think this implies he takes a medication) and it resolves. No previous EGD or colonoscopy. No GB, liver, or PUD history. Carlos says someone in the ER told him he had a pancreas infection. Takes Tylenol and ibuprofen PRN. Labs noted Hgb 12.9, plt 113, procalcitonin 3.84, bili 3.1, AST 58, ALT 80, Alk Phos 120. Imaging noted hepatic steatosis, urothelial thickening along both upper tracts, and interstitial opacities in both lung bases. (Re: concern for "pancreas infection," CT report notes unremarkable pancreas and lipase was not checked.) Pulmonology and urology have seen - UA ordered and recs for outpt CT urogram and cystoscopy. DC planned but family just told the nurse he had vomited four times today. Was given Rocephin in ER and continue IV vancomycin, also Rocephin per primary. PMH: PMH: denies FH: Family History: No pertinent hx Social History: Smoke: No ALCOHOL: none Drugs: None ROS: GEN: +fever HEENT: Denies blurred vision, sore throat CV: Denies chest pain RESP: Denies shortness of air, cough GI: Per HPI : Denies hematuria, dysuria ENDO: Denies weight changes NEURO: Denies confusion, dizziness MSK: +bodyaches SKIN: Denies jaundice, pruritus Vitals: Vitals: Vital Signs Date Time Temp Pulse Resp B/P (MAP) Pulse Ox O2 Delivery O2 Flow Rate FiO2 02/27/19 11:00 98.5 82 18 108/78 (88) 90 Room Air 98.5 Labs: Labs: Laboratory Tests Test 02/27/19 03:00 Sodium Level 146 mmol/L (136-145) Potassium Level 3.6 mmol/L (3.5-5.1) Chloride Level 113 mmol/L (98-107) Carbon Dioxide Level 22 mmol/L (21-32) Anion Gap 11 (6-14) Blood Urea Nitrogen 16 mg/dL (8-26) Creatinine 1.2 mg/dL (0.7-1.3) Estimated GFR (Cockcroft-Gault) 64.6 Glucose Level 118 mg/dL (70-99) Calcium Level 8.4 mg/dL (8.5-10.1) BLOOD CULTURE Preliminary NO GROWTH AFTER 1 DAY Allergies: Coded Allergies: No Known Drug Allergies (Unverified , 02/25/19) Medications: Current Medications Medications (Trade) Dose Ordered Sig/Bobby Route PRN Reason Start Time Stop Time Status Last Admin Dose Admin Vancomycin HCl 1.5 gm/Sodium Chloride 500 ml @ 250 mls/hr Q12H IV 02/26/19 15:00 02/27/19 03:48 Acetaminophen (Tylenol) 650 mg PRN Q6HRS PRN PO headache 02/27/19 04:15 02/27/19 12:18 Sodium Chloride 1,000 ml @ 75 mls/hr [id number] IV 02/27/19 04:30 02/27/19 04:10 Imaging: Imaging: CXR 02/25 IMPRESSION: 1. Basilar atelectasis. No confluent infiltrates. RUQ US 02/26 IMPRESSION: Diffuse hepatic steatosis. Normal GB and CBD. CT A/P w/ IV contrast 02/26 IMPRESSION: 1. Urothelial thickening along both upper tracts. Correlate for ascending urinary tract infection. No hydronephrosis. 2. Interstitial opacities in both lung bases. Correlate for mild to moderate pulmonary edema or atypical pneumonia. PE: GEN: NAD HEENT: Atraumatic, PERRL LUNGS: CTAB HEART: RRR ABD: NABS, S/ND, epigastric and RUQ discomfort EXTREMITY: No edema SKIN: No rashes, no jaundice NEURO/PSYCH: A & O 3 A/P: A/P: Fever, bodyaches, vomiting, upper abd pain Thrombocytopenia, elevated procalcitonin, abnormal LFTs Abnormal CT - urothelial thickening along both upper tracts - plans for outpt urology follow-up CRC screen - average risk Hepatic steatosis -- Recheck labs, add viral Hepatitis panel for completeness. Add IV PPI. Can keep to clears for now. Other per Dr. Lane. RICARDO VASQUEZ Feb 27, 2019 15:05
[2019-02-27] MEDS: VANCOMYCIN PER PHARMACY MC PRN (15:19)
[2019-02-27 15:23] LABS: HEMATOCRIT 35.6 % (39.0-53.0); HEMOGLOBIN 11.8 g/dL (13.0-17.5); RED BLOOD COUNT 3.91 x10^6/uL (4.30-5.70); RED CELL DISTRIBUTION WIDTH 15.2 % (11.5-14.5)
[2019-02-27] MEDS: PANTOPRAZOLE IV PUSH 40 MG VIAL. IVP SCH (15:44)
[2019-02-27 15:47] LABS: ALBUMIN 2.1 g/dL (3.4-5.0); DIRECT BILIRUBIN 1.8 mg/dL (0.0-0.2); TOTAL BILIRUBIN 2.1 mg/dL (0.2-1.0)
--- NOTE | 2019-02-27 18:08 | PDOC ---
Progress Note Subjective Subjective reports GH while IP, no clots, not today. No smoking hx. ROS ROS No nausea No vomiting No pain No rash Vital Sign Vital Signs Vital Signs Date Time Temp Pulse Resp B/P (MAP) Pulse Ox O2 Delivery O2 Flow Rate FiO2 02/27/19 15:00 98.5 84 18 103/69 (80) 91 Room Air 98.5 Physical Exam PHYSICAL EXAM GENERAL: NAD, Alert HEENT: PERRL, OC/OP NECK: Supple, no JVD, no LN LUNGS: Clear HEART: S1S2, no gallop, no murmur ABD: Soft, NT, no organomegaly, no rebound EXT: No edema, no cyanosis CYTOLOGY MANAGER: Alert, oriented x 3, no focal neurologic deficit SKIN: No rash IV: ok Labs Lab Laboratory Tests Test 02/27/19 03:00 02/27/19 14:25 White Blood Count 7.0 x10^3/uL (4.0-11.0) Red Blood Count 3.91 x10^6/uL (4.30-5.70) Hemoglobin 11.8 g/dL (13.0-17.5) Hematocrit 35.6 % (39.0-53.0) Mean Corpuscular Volume 91 fL (79-100) Mean Corpuscular Hemoglobin 30 pg (25-35) Mean Corpuscular Hemoglobin Concent 33 g/dL (31-37) Red Cell Distribution Width 15.2 % (11.5-14.5) Platelet Count 114 x10^3/uL (140-400) Sodium Level 146 mmol/L (136-145) Potassium Level 3.6 mmol/L (3.5-5.1) Chloride Level 113 mmol/L (98-107) Carbon Dioxide Level 22 mmol/L (21-32) Anion Gap 11 (6-14) Blood Urea Nitrogen 16 mg/dL (8-26) Creatinine 1.2 mg/dL (0.7-1.3) Estimated GFR (Cockcroft-Gault) 64.6 Glucose Level 118 mg/dL (70-99) Calcium Level 8.4 mg/dL (8.5-10.1) Total Bilirubin 2.1 mg/dL (0.2-1.0) Direct Bilirubin 1.8 mg/dL (0.0-0.2) Aspartate Amino Transf (AST/SGOT) 66 U/L (15-37) Alanine Aminotransferase (ALT/SGPT) 76 U/L (16-63) Alkaline Phosphatase 111 U/L (46-116) Total Protein 6.0 g/dL (6.4-8.2) Albumin 2.1 g/dL (3.4-5.0) Lipase 158 U/L (73-393) Vancomycin Level Trough 15.0 mcg/mL (10.0-20.0) Vancomycin Last Dose Date Unk Vancomycin Last Dose Time Unk Objective Assessment gh Plan Plan of Care recommend ct urogram. recommend cysto in one week JOSE HEBERT MD Feb 27, 2019 18:08
[2019-02-27 19:00] VITALS: BP 135/90
[2019-02-27 23:00] VITALS: BP 157/95
[2019-02-28] MEDS: IV NORMAL SALINE 1000ML BAG 1,000 ML IV SCH (00:24)
[2019-02-28] MEDS ORDERED: BENZONATATE 100 MG CAPSULE. PO PRN (01:30)
[2019-02-28] MEDS ORDERED: BENZONATATE 100 MG CAPSULE. PO SCH (01:30)
[2019-02-28] MEDS ORDERED: BENZOCAINE/MENTHOL LOZENGE. PO PRN (01:30)
[2019-02-28 03:00] VITALS: BP 126/80
[2019-02-28] MEDS: VANCOMYCIN 1.5 GM in IV NORMAL SALINE 500ML BAG 500 ML IV SCH ×2 (03:03→12:00)
[2019-02-28 03:18] LABS: BILIRUBIN,URINE SMALL (NEG); CLARITY,URINE CLEAR; COLOR,URINE AMBER; NITRITE,URINE NEGATIVE (NEG); PH,URINE 5.5; PROTEIN,URINE NEGATIVE (NEG-TRACE)
[2019-02-28 03:27] LABS: SQUAMOUS EPITHELIAL CELL,UR FEW /LPF
[2019-02-28 03:28] LABS: AMORPHOUS SEDIMENT,UR PRESENT /HPF; BACTERIA,URINE FEW /HPF (0-FEW); GRANULAR CASTS,URINE FEW /HPF
[2019-02-28] MEDS: PANTOPRAZOLE IV PUSH 40 MG VIAL. IVP SCH ×2 (06:15→15:29)
[2019-02-28] MEDS: ACETAMINOPHEN 325 MG TABLET. PO PRN (06:22)
[2019-02-28 07:00] VITALS: BP 143/88
--- NOTE | 2019-02-28 09:36 | PDOC ---
[facility] PROGRESS NOTE Chief Complaint Chief Complaint Fever Cough Sepsis Hypokalemia History of Present Illness History of Present Illness 02/28/19 Pt seen and examined Pt had some episodes of vomiting last night but is feeling better this morning Pt was able to tolerate food this AM. He denies any n/v Talked with family, son was translating and they all agreed he is ready to be discharged CHAS RN 02/27/19 Pt seen and examined at bedside Joined by family, son was able to translate Pt laying in bed, was able to answer questions Charts and labs reviewed DW RN Seen by pulmonary and urology Urine cultures negative Urothelial thickening seen on imaging 02/26/19 Pt seen and examined at bedside Joined by family; does not speak Khmer Son was able to interpret Pt was laying in bed, looked slightly uncomfortable Charts and labs reviewed Interstitial opacities found on CXR Possible ascending pyelonephritis Hepatitic steatosis on US Vitals/I&O Vitals/I&O: Vital Signs Date Time Temp Pulse Resp B/P (MAP) Pulse Ox O2 Delivery O2 Flow Rate FiO2 02/28/19 07:41 Room Air 02/28/19 07:00 98.7 73 16 143/88 (106) 91 98.7 I & O 02/27/19 02/28/19 02/28/19 16:59 00:59 08:59 Intake Total 360 ml 360 ml Output Total 300 ml 350 ml Balance 360 ml 60 ml -350 ml Physical Exam Physical Exam: GENERAL: NAD, Alert HEENT: PERRL, OC/OP NECK: Supple, no JVD, no LN LUNGS: Clear HEART: S1S2, no gallop, no murmur ABD: Soft, NT, no organomegaly, no rebound EXT: No edema, no cyanosis BOOM STORAGE: Alert, oriented x 3, no focal neurologic deficit SKIN: No rash IV: ok General: Alert, Oriented X3, Cooperative, No acute distress Heart: Regular rate, Normal S1, Normal S2 Abdomen: Normal bowel sounds, Soft Extremities: No clubbing, No cyanosis, No tenderness/swelling Skin: No rashes, No breakdown, No significant lesion Labs Labs: Laboratory Tests Test 02/27/19 14:25 02/28/19 03:05 Total Bilirubin 2.1 mg/dL (0.2-1.0) Direct Bilirubin 1.8 mg/dL (0.0-0.2) Aspartate Amino Transf (AST/SGOT) 66 U/L (15-37) Alanine Aminotransferase (ALT/SGPT) 76 U/L (16-63) Alkaline Phosphatase 111 U/L (46-116) Total Protein 6.0 g/dL (6.4-8.2) Albumin 2.1 g/dL (3.4-5.0) Lipase 158 U/L (73-393) Vancomycin Level Trough 15.0 mcg/mL (10.0-20.0) Vancomycin Last Dose Date Unk Vancomycin Last Dose Time Unk Hepatitis A IgM Antibody Nonreactive (Nonreactive) Hepatitis B Surface Antigen Nonreactive (Nonreactive) Hepatitis B Core IgM Antibody Nonreactive (Nonreactive) Hepatitis C IgG Antibody Nonreactive (Nonreactive) Urine Collection Type Unknown Urine Color [place] Urine Clarity Clear Urine pH 5.5 Urine Specific [place] 1.025 Urine Protein Negative mg/dL (NEG-TRACE) Urine Glucose (UA) Negative mg/dL (NEG) Urine Ketones (Stick) Trace mg/dL (NEG) Urine Blood Moderate (NEG) Urine Nitrite Negative (NEG) Urine Bilirubin Small (NEG) Urine Urobilinogen Dipstick 1.0 mg/dL (0.2 mg/dL) Urine Leukocyte Esterase Negative (NEG) Urine RBC 11-20 /HPF (0-2) Urine WBC 1-4 /HPF (0-4) Urine Squamous Epithelial Cells Few /LPF Urine Amorphous Sediment Present /HPF Urine Bacteria Few /HPF (0-FEW) Urine Granular Casts Few /HPF Urine Mucus Marked /LPF Review of Systems Review of Systems: Denies chest pain Denies shortness of breath Assessment and Plan Assessmemt and Plan Problems Medical Problems: (1) Cough Status: Acute (2) Fever Status: Acute (3) Hypokalemia Status: Acute (4) Sepsis Status: Acute Assessment Fever Cough Sepsis UTI Pyelonephritis Plan PO abx Outpatient CT urogram to r/o malignancy per urology Home meds DVT prophylaxis Full code Probable discharge today Comment Review of Relevant I have reviewed the following items lacey (where applicable) has been applied. Medications: Current Medications Medications (Trade) Dose Ordered Sig/Bobby Route PRN Reason Start Time Stop Time Status Last Admin Dose Admin Vancomycin HCl (Vancomycin Trough Level) 1 each 1X ONCE MC 02/27/19 14:30 02/27/19 14:31 DC 02/27/19 14:30 Ondansetron HCl (Zofran) 4 mg PRN Q6HRS PRN IVP NAUSEA/VOMITING 02/27/19 14:15 02/28/19 06:22 Pantoprazole Sodium (PROTONIX VIAL for IV PUSH) 40 mg BIDAC IVP 02/27/19 16:30 02/28/19 06:15 Benzonatate (Tessalon Perle) 100 mg PRN Q8HRS PRN PO COUGH 02/28/19 01:30 02/28/19 01:47 LM CORREIA III DO Feb 28, 2019 09:36
--- NOTE | 2019-02-28 10:51 | PDOC ---
Subjective: Subjective: Carlos present to translate - vomiting this morning at 5:00 a.m., then had clear liquids for breakfast and kept them down. A little epigastric pain. Objective: Vital Signs: Vital Signs Date Time Temp Pulse Resp B/P (MAP) Pulse Ox O2 Delivery O2 Flow Rate FiO2 02/28/19 07:41 Room Air 02/28/19 07:00 98.7 73 16 143/88 (106) 91 98.7 Labs: Laboratory Tests Test 02/27/19 14:25 02/28/19 03:05 Total Bilirubin 2.1 mg/dL Direct Bilirubin 1.8 mg/dL Aspartate Amino Transf (AST/SGOT) 66 U/L Alanine Aminotransferase (ALT/SGPT) 76 U/L Alkaline Phosphatase 111 U/L Total Protein 6.0 g/dL Albumin 2.1 g/dL Lipase 158 U/L Vancomycin Level Trough 15.0 mcg/mL Vancomycin Last Dose Date Unk Vancomycin Last Dose Time Unk Hepatitis A IgM Antibody Nonreactive Hepatitis B Surface Antigen Nonreactive Hepatitis B Core IgM Antibody Nonreactive Hepatitis C IgG Antibody Nonreactive Urine Collection Type Unknown Urine Color Abby Urine Clarity Clear Urine pH 5.5 Urine Specific [place] 1.025 Urine Protein Negative mg/dL Urine Glucose (UA) Negative mg/dL Urine Ketones (Stick) Trace mg/dL Urine Blood Moderate Urine Nitrite Negative Urine Bilirubin Small Urine Urobilinogen Dipstick 1.0 mg/dL Urine Leukocyte Esterase Negative Urine RBC 11-20 /HPF Urine WBC 1-4 /HPF Urine Squamous Epithelial Cells Few /LPF Urine Amorphous Sediment Present /HPF Urine Bacteria Few /HPF Urine Granular Casts Few /HPF Urine Mucus Marked /LPF BLOOD CULTURE Preliminary NO GROWTH AFTER 2 DAYS PE: GEN: NAD - was asleep LUNGS: CTAB HEART: RRR ABD: mild epigastric discomfort - none in RUQ today NEURO/PSYCH: A & O 3 A/P: Vomiting, epigastric pain Abnormal LFTs - bili and Alk Phos improved, AST and ALT stable; Hepatitis panel negative; EBV and CMV pending Abnormal CT - urothelial thickening along both upper tracts - on atbx w/ plans for outpt urology follow-up Hepatic steatosis -- Hepatitis panel negative, EBV and CMV pending. Okay to try full liquids for lunch if he wants. Change to PO PPI when reliably eating. I did ask for a manager global phone for his room per family request. 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 RICARDO VASQUEZ Feb 28, 2019 10:51
[2019-02-28 11:00] VITALS: BP 142/85
[2019-02-28] MEDS: VANCOMYCIN PER PHARMACY MC PRN (11:17)
[2019-02-28] MEDS: cefTRIAXone IV Push 1 GM VIAL. IVP SCH (11:30)
[2019-02-28 15:00] VITALS: BP 148/93
--- NOTE | 2019-02-28 16:20 | NUR ---
Discharge Note: EZEQUIEL SIMS Discharge instructions and discharge home medications reviewed with Patient and family members and a copy given. All questions have been answered and understanding verbalized. The following instructions and handouts were given: information about follow up appointments, medications, etc. Discontinued lines and drains: IV line in right forearm removed, catheter tip intact. Patient discharged to home with self care, patient ambulated to discharge vehicle.
[2019-02-28] MEDS ORDERED: LACTOBACILLUS RHAMNOSUS GG 1 CAPSULE. PO SCH (21:00)
--- NOTE | 2019-03-05 08:23 | DS ---
DATE OF DISCHARGE: 02/28/2019 ADMISSION DIAGNOSES: Fever, cough, sepsis, hypokalemia. DISCHARGE DIAGNOSES: 1. Resolving sepsis. 2. Inflammatory changes were noted on his CAT scan and his ureters, but his urine was clean. CONSULTS: Urology and Pulmonary. HOSPITAL COURSE: The patient is a pleasant middle-aged male, who presented with fever, cough and sepsis. Instantly, his urine was clean. His chest x-ray did not show that much. His ureters were apparently inflamed, though they were concerned that there could be infection or maybe even more aggressive disease. The above consults were obtained. Urology recommended that we follow up closely as an outpatient. We gave him IV antibiotics and fluids and breathing treatments. Over the next few days, he has basically returned to his baseline. We discharged to home with close outpatient followup. DISPOSITION: Home. ACTIVITY: As tolerated. DIET: Low sodium. MEDICATIONS: Please see the MRAD. TOTAL TIME: 34 minutes. LM CORREIA DO DR: REAGAN/pema JOB#: [id number] / [id number]
== END 2019-02-28 16:20 | disposition home or self-care (01) | DRG 871 ==
LOC: ER 22:49 → 4 NORTH 02-26 02:04 → ER 02-26 03:21
PROVIDERS: ADMIT Internal Medicine; ATTEND Internal Medicine
DX: A41.9 Sepsis, unspecified organism (principal); J18.9 Pneumonia, unspecified organism; J98.11 Atelectasis; N12 Tubulo-interstitial nephritis, not specified as acute or chronic; R31.29 Other microscopic hematuria; K76.0 Fatty (change of) liver, not elsewhere classified; D69.6 Thrombocytopenia, unspecified; E87.6 Hypokalemia; Z82.49 Family history of ischemic heart disease and other diseases of the circulatory system
CPT/HCPCS: 36415; 71045; 74177; 76705; 80048; 80053; 80076; 80202; 81001; 82553; 83605; 83690; 83735; 83880; 84145; 84484; 85007; 85025; 85027; 86644; 86645; 86663; 86664; 86705; 86709; 86803; 87040; 87070; 87340; 87804; 87880; 88112; 90471; 90686; 93005; 96365; 96367; 96375; C9113; J0696; J0780; J2270; J2405; J2543; J3010; J3370; J7030; J7040; Q9967; 99285-25; G0378